=== PATIENT | male | born 1995 | race Caucasian/White ===

== ENCOUNTER 2017-12-12 06:23 | Observation (INO) ==
[2017-12-12] MEDS ORDERED: Sodium Chloride 0.9% 1,000 ML PRIMARY IV ONE ×2 (06:44→09:09)
[2017-12-12] MEDS ORDERED: Acetaminophen 1000mg Inj 1,000 MG/100 ML VIAL IV ONE (06:48)
[2017-12-12 06:55] LABS: BASOPHILS # (AUTO) 0.03 10*3/UL; BASOPHILS % (AUTO) 0.2 % (0-1); EOSINOPHILS # (AUTO) 0.38 10*3/UL; EOSINOPHILS % (AUTO) 2.2 % (0-8); Hematocrit [HCT] 37.3 % (42.0-52.0); Hemoglobin [HGB] 13.2 g/dL (14.0-18.0); LYMPHOCYTES # (AUTO) 2.65 10*3/uL; MEAN CORPUSCULAR HEMOGLOBIN 32.3 PG (27-31); MEAN CORPUSCULAR HGB CONC 35.4 g/dL (33-37); MEAN CORPUSCULAR VOLUME 91.2 FL (80-90); MONOCYTES # (AUTO) 0.74 10*3/UL (0.3-0.8); MONOCYTES % (AUTO) 4.4 % (5-15); NEUTROPHILS # (AUTO) 13.06 10*3/UL; NEUTROPHILS % (AUTO) 76.8 % (50-80); RED BLOOD COUNT 4.09 10^6/uL (4.70-6.10)
[2017-12-12 07:05] LABS: BLOOD UREA NITROGEN 14 mg/dL (7-22); PLATELET MORPHOLOGY COMMENT NORMAL MORPHOLOGY (NORM); RBC MORPHOLOGY COMMENT NORMAL MORPHOLOGY (NORM); SERUM ALBUMIN 4.5 g/dL (3.5-4.8); WBC MORPHOLOGY COMMENT NORMAL MORPHOLOGY (NORM)
[2017-12-12 07:09] LABS: LIPASE 99 IU/L (23-300)
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
[2017-12-12 09:31] LABS: BILIRUBIN,URINE NEGATIVE (NEG); CLARITY,URINE CLEAR (CLEAR); COLOR,URINE YELLOW (Y); GLUCOSE, URINE (UA) NEGATIVE (NEG); OCCULT BLOOD,URINE LARGE (NEG); PH,URINE 5.5 (5.0-8.5); PROTEIN,URINE NEGATIVE (NEG); UROBILINOGEN,URINE 0.2 EU/dL (0.2)
[2017-12-12 09:40] LABS: SQUAMOUS EPITHELIAL CELL,UR RARE; URINE SAMPLE TYPE CLEAN CATCH URINE
[2017-12-12 09:43] LABS: AMPHETAMINE SCREEN POSITIVE (NEG); CANNABINOID SCREEN,URINE POSITIVE (NEG); COCAINE SCREEN NEGATIVE (NEG); METHADONE URINE SCREEN NEGATIVE (NEG); METHAMPHETAMINES SCREEN,URINE NEGATIVE (NEG); OPIATE SCREEN,URINE NEGATIVE (NEG); URINE SAMPLE TYPE CLEAN CATCH URINE; URINE SPECIFIC GRAVITY - MAN 1.007
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
[2017-12-12] MEDS ORDERED: DOCUSATE 100 MG CAPSULE PO PRN (12:23)
[2017-12-12] MEDS ORDERED: CALCIUM CARBONATE 500 MG (TUMS) CHEWABLE TABLET PO PRN (12:23)
[2017-12-12] MEDS ORDERED: oxyCODONE IR Tab 5 MG TAB PO PRN (12:23)
[2017-12-12] MEDS ORDERED: ONDANSETRON 4 MG/2 ML VIAL IVP PRN (12:23)
[2017-12-12] MEDS ORDERED: LIDOCAINE W/ SODIUM BICARB 0.5 ML SYR SUBD PRN (12:23)
[2017-12-12] MEDS: KETOROLAC 15 MG/1 ML VIAL IVP PRN ×2 (12:44→19:14)
[2017-12-12] MEDS: HYDROcodone-APAP 7.5 MG-325 MG TABLET PO PRN (18:11)
[2017-12-13] MEDS: HYDROcodone-APAP 7.5 MG-325 MG TABLET PO PRN ×2 (04:29→09:06)
[2017-12-13 07:24] VITALS: BP 119/77; RESP 17; TEMP 98.1; O2SAT 94
--- NOTE | 2017-12-13 11:04 | EKG ---
[address] [place] [address] Measurements Intervals [place] Rate: 81 P: 81 OR: 132 QRS: 89 QRSD: 94 T: 82 QT: 376 QTc: 414 Interpretive Statements SINUS RHYTHM WITH SINUS ARRHYTHMIA Compared to ECG 11/11/2013 23:07:02 T-wave abnormality no longer present Electronically Signed On 12-14-17 08:46:00 MDT by Hero Ochoa MD [email or web address]
== END 2017-12-13 10:18 | disposition left against medical advice (07) ==
LOC: MED/SURG 06:23 → ER 06:23 → MED/SURG 12:15
PROVIDERS: ADMIT Surgery; ATTEND Surgery